=== PATIENT | female | born 1965 | race African-American/Black ===

== ENCOUNTER 2021-06-12 04:33 | Day surgery (SDC) | payer BC, OTHER ==
[2021-06-10 11:37] VITALS: BMI 30.4
[2021-06-12 09:59] VITALS: TEMP 97
[2021-06-12 12:22] VITALS: BP 136/79; PULSE 71
== END 2021-06-12 10:45 | disposition home or self-care (01) ==
LOC: JASU-ENDO 04:33
PROVIDERS: ATTEND Internal Medicine Gastroenterology
PROC: 0DJD8ZZ Inspection of Lower Intestinal Tract, Via Natural or Artificial Opening Endoscopic (ICD-10-PCS; principal; 2021-06-12 11:45)
DX: Z12.11 Encounter for screening for malignant neoplasm of colon (principal); Z86.010 Personal history of colon polyps

== ENCOUNTER 2022-03-02 10:39 | Emergency (ER) | payer BC, OTHER ==
[2022-03-02 11:04] VITALS: BP 152/71; PULSE 78; RESP 18; TEMP 97.1; BMI 29.1
== END 2022-03-02 17:27 | disposition home or self-care (01) ==
LOC: JERFT 10:39 → JER 10:39 → JERFT 17:27
DX: M25.562 Pain in left knee (principal)
CPT/HCPCS: 73562-TC-LT-FY; 93971-TC; 99284-25